=== PATIENT | female | born 1985 | race Caucasian/White ===

== ENCOUNTER 2016-10-26 05:04 | Inpatient (IN) | payer OTHER ==
[~2016-10-26] VITALS: Ht 165.1 cm; Wt 82.1 kg
[~2016-10-26 05:04] MED LIST: DOCU-41 PO; HYDR-4003 PO; IBUP800T28 PO
[2016-10-26] MEDS ORDERED: Lactated Ringer's 1,000 ML IV PRN (05:29)
[2016-10-26] MEDS ORDERED: Oxytocin 30 Units/500 mL LR 30 UNITS in IV Premix 1 EACH IV PRN ×3 (05:30→17:40)
[2016-10-26] MEDS ORDERED: Hemorrhage Kit, Post Partum XX ONE ×2 (05:30→17:40)
[2016-10-26] MEDS ORDERED: Methylergonovine 0.2 mg/mL Inj IM PRN ×2 (05:30→17:40)
[2016-10-26] MEDS ORDERED: Ondansetron 2 mg/mL 2 mL Inj IVPUSH PRN ×2 (05:30→07:10)
[2016-10-26] MEDS ORDERED: Carboprost 250 mCg/mL Inj IM PRN ×2 (05:30→17:40)
[2016-10-26] MEDS ORDERED: Oxytocin 10 Unit/mL Inj IM PRN ×2 (05:30→17:40)
[2016-10-26] MEDS ORDERED: fentaNYL-PF 50 mCg/mL 2 mL Inj IVPUSH PRN (05:30)
--- NOTE | 2016-10-26 06:21 | PCM.HPOB ---
Subjective Referring Provider: Admitting Physician: Kareen Bobo MD Primary Care Physician: Nopcp Attending Physician: Kareen Bobo MD Chief Complaint "water broke" History of Present History of Present Illness Ms. Smith is a 31 y/o woman at 36 weeks 5 days gestation who presented to the [facility] for PPROM at 04:30 this morning. JENNIFER is 11/18/16 based on first trimester ultrasound. She states that it was a large gush of clear fluid. She has been having contractions every 1-2 minutes. She has a headache, ringing in her ears, and is diaphoretic. She does not have fever, chills, chest pain, upper abdominal pain, or increased swelling in her legs. From her outpatient records, she has had sciatica during this and was taking [place]land. She has been taking Ambien and a short course of Ativan for insomnia and anxiety, respectively. GBS status currently unknown, it was collected on 10/22/16 and results are not back yet. Patient has a severe penicillin allergy, which she had anaphylaxis in the past after penicillin. labs: blood type B positive, Pap smear negative, varicella immune, rubella immune, RPR nonreactive, HBsAg negative, HIV negative, 1 hour GTT within normal limits, gonorrhea and chlamydia negative, hepatitis C negative, TSH 1.810, HgbA1c 4.8% OB History: (3), Para (1), Term (1), Pre-term (0), ( 1), Living (1) Past Medical History Obstetrical History: History of one spontaneous 1 prior without complications but had depression Current , she had sciatica Gynecologic History: No history of STIs No history of abnormal Pap smears Age of menarche 12 y/o and her periods were regular Medical History: Anxiety and depression Surgical History: Breast augmentation 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 Hx Tobacco Use: No Hx Alcohol Use: No Hx Substance Use: No Past Family History Family History breast cancer in mother Review of Systems Constitutional: Y: Dizziness, Sweats, Chills, Fever Eyes: Denies: Blurred Vision, Vision Changes ENT: Denies: Nasal Congestion, Throat Pain Cardiovascular: Denies: Chest Pain Respiratory: Reports: SOB with Exertion, Denies: Cough, Pleuritic Chest Pain Gastrointestinal: Denies: Abdominal Pain, Epigastric pain, Nausea, Vomiting Genitourinary: Denies: Dysuria Psychologic: Reports: Anxious Medications Home medications vitamin Ambien Allergy Coded Allergies: Penicillins (Verified Allergy, Severe, 09/15/15) Exam Vital Signs T: 36.3, BP 123/77, HR 83, RR 18 Exam FHR 130-140s with variability and accelerations. No decelerations Constitutional: Well-developed, Well-nourished, Normal habitus HEENT: Atraumatic, EOMI, Scleral Anicteric, Mucous Membr Moist/[place] Lungs: Clear to Auscultation, Normal Air Movement Heart: Exam Unremarkable, Regular Rate/Rhythm, Normal S1, Normal S2, No Murmurs /Rubs/Gallops Abdomen: Gravid, Normal bowel sounds, Soft Extremities: Pulses Palpable x4, No Edema Neurological/Psychiatric: Alert, Oriented X3, Cooperative, Mild Distress ( secondary to contractions) Neuro: Grossly Neurologically Intact Additional Information Cervical exam: 4, 80, -2 Labs/Diagnostics Maternal Blood Type: B (positive) Group B Strep Results: Sent, awaiting results Rubella: Immune OB Intrapartum Assessment/Plan Assessment 1. 31 y/o woman at 36 weeks 5 days gestation who presented to the [facility] for PPROM at 04:30 this morning. JENNIFER is 11/18/16 based on first trimester ultrasound. -Normal uterine activity -FHR category I tracing -GBS unknown and patient is allergic to penicillin, will try to obtain GBS results from the lab -Continue expectant management Attending Statement The patient was seen and examined together with Dr. Sarah Hackett DO on 2016 and I agree with the history, exam and plan as outlined in the note above. Sarah Hackett DO Oct 26, 2016 06:21 Kareen Bobo MD Nov 02, 2016 09:09
[2016-10-26 07:00] LABS: Mean Corpuscular Hemoglobin 31.3 pg (27.0-35.0); Mean Corpuscular Volume 93.1 fL (81-100)
[2016-10-26] MEDS ORDERED: Lactated Ringer's 500 ML IV ONE (07:08)
[2016-10-26] MEDS ORDERED: fentaNYL 2 mCg/mL-Bupiv 0.125% 100 ML EPIDURAL SCH ×3 (07:10→09:40)
[2016-10-26] MEDS ORDERED: Atropine 1 mg/10 mL (Code) Syringe IVPUSH PRN (07:10)
[2016-10-26] MEDS ORDERED: EPHEDrine Sulfate 50 mg/mL Inj IVPUSH PRN (07:10)
[2016-10-26] MEDS: Lactated Ringer's 1,000 ML IV SCH ×4 (07:11→16:03)
[2016-10-26] MEDS ORDERED: EPHEDrine/NS 5 mg/mL 5 mL Syringe ONE (08:06)
[2016-10-26] MEDS ORDERED: Vancomycin Inj 1,000 MG in IV Premix 1 EACH IV SCH (08:30)
[2016-10-26] MEDS ORDERED: Sodium Chloride LOK Flush 10 mL Syringe IVFLUSH SCH (08:30)
--- NOTE | 2016-10-26 08:41 | PCM.HPANE ---
Patient Data Surgeon Admitting Provider:Kareen Bobo MD Attending Provider:Kareen Bobo MD Primary Care Physician:Elpidio Other Provider:Howard Andrade Anesthesia Reason for Visit Term Labor TERM LABOR Ht/WT & BMI Body Mass Index Allergies Coded Allergies: Penicillins (Verified Allergy, Severe, 09/15/15) Past Anesthesia History Anesthesia History: Denies:: Abnormal Airway, Anesthesia Reactions, Difficult Intubation, Fam Anesthesia Reaction, Fam Malignant Hypertherm, Malignant Hyperthermia Diabetes History Hx Diabetes?: No Medications Hypertension Medication: No Home Meds Incl Beta Samuel: No Active Scripts Hydrocodone-Acetaminophen 5-325 mg 1 Each Tablet1-2 Tablet PO q6hrs PRN For Pain #20 TABLET Ref 0 Prov:Mike Moser COMPUTER SYSTEMS SOFTWARE ENGINEER 08/25/15 Hydrocodone-Acetaminophen 5-325 mg 1 Each Tablet1-2 Each PO Q4 PRN For Pain #30 TABLET Prov:Jeff Munson MD 06/04/14 Docusate Sodium (Colace)100 Mg [id number] Mg PO BID PRN For Constipation #60 CAPSULE Prov:Jeff Munson MD 06/04/14 Ibuprofen 800 Mg [id number] Mg PO QID PRN For Pain #60 TABLET Prov:Jeff Munson MD 06/04/14 Last Time Dose Received Pt. states she is on nothing but PNV's. History History of ENT Problems?: No HEENT History: Denies:: Abnormal Airway Cataracts Difficult Intubation Dysphagia Glaucoma Hearing Problem Sinus Problem TMJ Denture Type: None Teeth Condition: Within Normal Limits Hx of Heart Problems?: No Cardiovascular History: Denies:: Congestive Heart Failure Hypertension Hx of Respiratory Problem?: No Respiratory History: Denies:: Tuberculosis Hx Neurologic Problems?: Yes (See below) Other History/Comments Anxiety/depression Sciatica during Hx of GI Problems?: No Hx of Problems?: No HX of Peritoneal Dialysis: No Female Hx: Positive for:: Currently Hx Musculoskeletal Problems?: No Hx of Psycho/Social Problems?: Yes Psycho Social History: Positive for:: Anxiety Hx Depression Hx Surgeries?: No Hx Any Other Health Problems?: No Hx Diabetes: No Hx Alcohol Use: NoHx Substance Use: No Smoking Status: Never Smoker Have You Smoked inLast 12 mo: No Stop/Bang Risk Assessment Category Category 1A: Patient has history of documented sleep apnea, and HAS NOT received any narcotic, sedative or anesthesia administration during this stay. Category 1B: Patient has history of documented sleep apnea, and HAS received any narcotic , sedative or anesthesia administration during this stay Category 2: Patient has SUSPECTED Obstructive Sleep Apnea, and HAS received any narcotic , sedative or anesthesia administration during this stay. Category 3: Patient has SUSPECTED Obstructive Sleep Apnea and HAS NOT received narcotic, sedative or anesthesia administration during this stay. Category 4: Outpatient in Procedural Areas with known sleep apnea or who screen positive for High Risk via the STOP/BANG questionnaire. Exam Exam General Appearance: Alert, Oriented X3, Cooperative, Mild Distress (secondary to contractions) HEENT/AIRWAY: MP 2, Neck Movement (FROM) Lungs: Clear to Auscultation, Normal Air Movement Heart: Exam Unremarkable, Regular Rate/Rhythm, Normal S1, Normal S2, No Murmurs /Rubs/Gallops Meds/Labs/Diagnostics Labs Test 10/26/16 06:40 White Blood Count 8.4th/mm3 (3.8-10.1) Red Blood Count 3.93mil/mm3 (3.90-5.20) Hemoglobin 12.3g/dL (12.0-15.6) Hematocrit 36.6% (35.0-46.0) Mean Corpuscular Volume 93.1fL (81-100) Mean Corpuscular Hemoglobin 31.3pg (27.0-35.0) Mean Corpuscular Hemoglobin Concent 33.6% (32.0-37.0) Red Cell Distribution Width 13.7% (12.3-15.4) Platelet Count 195bil/L (150-400) Plan Impression Patient chart reviewed, patient interviewed and anesthestic plan with risks, benefits, and alternatives discussed, and informed consent obtained. ASA Physical Status: ASA2 Mod Systemic Disease Anesthetic Plan: Epidural Bene/Risks/Altern/Consents: Yes HP Complete Prior to Induction: Yes Krzysztof Schuster MD Oct 26, 2016 07:10
[2016-10-26] MEDS ORDERED: diphenhydrAMINE 50 mg Capsule PO PRN (11:55)
[2016-10-26] MEDS ORDERED: LANOlin HPA 7 Gm Ointment TOPICAL PRN (17:40)
[2016-10-26] MEDS ORDERED: Benzocaine (Dermoplast) 20% 60 Gm Spray TOPICAL PRN (17:40)
[2016-10-26] MEDS ORDERED: Witch Hazel-Glycerin Pads TOPICAL PRN (17:40)
[2016-10-26] MEDS: oxyCODONE-Acetamin 5-325 mg Tablet PO PRN ×2 (20:03→23:37)
--- NOTE | 2016-10-26 20:50 | OP ---
[address] [address] OPERATIVE REPORT PATIENT: LESLEY CALDERON : 1985 MR#: [id number] ADMIT: 10/26/2016 JOB ID: [id number] DATE OF SURGERY: 10/26/2016 SURGEON: Pat Meraz MD. PREOPERATIVE DIAGNOSIS(ES): 1. 36 plus five week intrauterine with premature rupture of membranes. 2. Severe anxiety. 3. Sciatica. POSTOPERATIVE DIAGNOSIS(ES): 1. 36 plus five week intrauterine with premature rupture of membranes. 2. Severe anxiety. 3. Sciatica. PROCEDURE PERFORMED: Spontaneous vaginal delivery of a liveborn male , born on October 26, 2016, at 1712 hours. Weight is currently pending with Apgars of 8 at one minute, 8 at five minutes. ANESTHESIA: Epidural. ESTIMATED BLOOD LOSS: 200 cc. FLUID REPLACEMENT: Crystalloid in labor. COMPLICATIONS: None apparent. INDICATIONS: This is a 31-year-old, G3, P 1-0-1-1 female, who is presenting at 36 plus five weeks gestational age complaining of premature rupture of membranes. She was noted to be ruptured at the time of admission and 2 cm dilated. EDC was November 18, 2016. Her was complicated by severe anxiety as well as insomnia and sciatica throughout the requiring use of both Vicodin as well as daily Ambien and later in Ativan due to panic attacks. She presented on the morning of the and was admitted after she was noted to be ruptured. laboratory data showed blood type of B positive, antibody screen negative, rubella immune, varicella immune, hep B surface antigen negative, RPR nonreactive, HIV negative, and GBS negative. The patient was admitted October 26 with rupture of membranes. An epidural was placed for her pain relief and when she was noted to have minimal cervical change four hours after admission Pitocin was then started per protocol. Pitocin was increased to six milliunits and she progressed to complete by the afternoon of October 26. It was at this point that she began pushing, bringing the vertex to the perineum. HOSPITAL COURSE: The patient was noted to be complete and pushing so she was placed in dorsal lithotomy position, prepped and draped in the usual sterile fashion for a vaginal delivery. She pushed and the head delivered spontaneously in the LLOYD position over an intact perineum. A nuchal cord was checked and none was noted. The anterior shoulder delivered easily, followed by the posterior shoulder and the remainder of the was then easily delivered. After a 60 second cord clamping delay the cord was then clamped and cut and the infant was placed on the mother's abdomen. Cord blood was then obtained. The placenta delivered intact spontaneously after Pitocin was started per protocol and a bimanual examination revealed that there were no remaining placental fragments within the uterine cavity. Examination of the vaginal vault and perineum showed a periclitoral abrasion that was hemostatic and not repaired. She otherwise had no other lacerations. She tolerated this procedure well. Recovered in labor and delivery with her infant. All sponge, needle, and instrument counts were correct.
[2016-10-27] MEDS: Lactated Ringer's 1,000 ML IV SCH ×3 (01:37→02:04)
[2016-10-27] MEDS: oxyCODONE-Acetamin 5-325 mg Tablet PO PRN ×3 (03:32→11:11)
[2016-10-27 07:54] LABS: Mean Corpuscular Hemoglobin 31.3 pg (27.0-35.0); Mean Corpuscular Volume 94.8 fL (81-100)
[2016-10-27] MEDS ORDERED: Ascorbic Acid 500 mg Tablet PO SCH (08:00)
--- NOTE | 2016-10-27 12:02 | PCM.DIMED ---
Discharge Instructions Date of Service Oct 27, 2016 Dates of Hospitalization Oct 26, 2016 at 05:10 Diet No restrictions Activity No restrictions Call your provider Fever or Chills, Shortness of breath, Bleeding, Chest pain, Vomitting Patient Instructions Follow-up with PCP in: 6 weeks Xavi Bone MD Oct 27, 2016 12:02
[2016-10-27] MEDS ORDERED: FERR-74 PO (12:05)
[2016-10-27] MEDS ORDERED: IBUP800T28 PO (12:05)
[2016-10-27] MEDS ORDERED: OXYC5TAB72 PO (12:05)
[2016-10-27] MEDS ORDERED: DOCU-41 PO (12:06)
[2016-10-27 12:19] VITALS: BP 114/61; PULSE 87; RESP 18
--- NOTE | 2016-10-27 14:31 | DIS ---
[address] [address] DISCHARGE SUMMARY PATIENT: LESLEY CALEDRON : 1985 MR#: [id number] ADMIT: 10/26/2016 JOB ID: [id number] DIS: 10/27/2016 ADMITTING DIAGNOSES: 1. A 31-year-old 3, para 1 at 36 weeks and five days in active labor with premature rupture of membranes. 2. Anxiety disorder. 3. Sciatica. DISCHARGE DIAGNOSES: 1. Spontaneous vaginal delivery at 36 weeks and five days. 2. Anxiety disorder. 3. Sciatica. HOSPITAL COURSE: The patient is a 31-year-old 3, para 2 now, who presented to Labor and Delivery at 36 weeks and five days with premature rupture of membranes on October 26, 2016 at 4:30 a.m. The cervix was 2 cm dilated at the time of admission. She received Vicodin for anxiety. She was GBS negative. She received an epidural. Pitocin was started for induction of labor as per protocol. The patient progressed to complete dilation in the afternoon of October 26, 2016 and began pushing. She underwent spontaneous vaginal delivery on October 26, 2016 at 5:12 p.m., delivered male with Apgars 8 at one minute and eight at 5 minutes. The delivery was uncomplicated. The patient had minimal periurethral abrasions. No perineal lacerations. No repair was needed. One day one, October 27, 2016, the patient was complaining of abdominal cramps. She has not had any bleeding or abnormal vaginal discharge. She was breast-feeding well, ambulating, tolerating regular food. Vitals were stable. She was afebrile. On examination, the fundus was firm. The abdomen mildly to moderately tender. She was discharged home on day one, October 27, 2016, with all discharge criteria met. Her blood work showed mild anemia with hemoglobin 11.4. The patient received discharge medications includin. Ferrous sulfate 325 mg p.o. daily. 2. Colace 100 mg p.o. b.i.d. 3. Oxycodone 5 mg tablets p.o. t.i.d. for pain. 4. Ibuprofen 800 mg p.o. t.i.d. p.r.n. for pain. The follow up visit in the clinic is scheduled in six weeks.
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
[2016-10-27] MEDS ORDERED: LORA-303 PO (15:56)
[2016-10-27] MEDS ORDERED: SERT50TA9 PO (16:00)
== END 2016-10-27 12:36 | disposition home or self-care (01) | DRG 775 ==
LOC: FBCO 05:04 → FBC 05:10
PROVIDERS: ADMIT Obstetrics & Gynecology; ATTEND Obstetrics & Gynecology
PROC: 10E0XZZ Delivery of Products of Conception, External Approach (ICD-10-PCS; principal; 2016-10-26)
DX: O42.013 Preterm premature rupture of membranes, onset of labor within 24 hours of rupture, third trimester (principal); Z3A.36 36 weeks gestation of pregnancy; Z37.0 Single live birth; O90.81 Anemia of the puerperium

== ENCOUNTER 2016-12-02 07:27 | Emergency (ER) | payer OTHER ==
[~2016-12-02] VITALS: Ht 162.6 cm; Wt 72.7 kg
[~2016-12-02 07:27] MED LIST changes: +FERR-74 PO; -HYDR-4003 PO; +LORA-303 PO; +OXYC5TAB72 PO; +SERT50TA9 PO
--- NOTE | 2016-12-02 07:31 | ED.REPORT ---
HPI-Psychiatric Illness Date of Service December 02, 2016 ED Provider: Jori Ng MD Pt is a 31 y.o. female who is 7 weeks who presents to the ED via EMS with suicidal ideation. Pt called EMS prior to arrival saying that she was going to harm herself. Upon their arrival pt told them that she had guns in the house and if she knew how to load them she would have shot herself in the head. She however kept declining transfer to the hospital as she couldn't leave her two children. The pt's was able to come home to watch the kids and she agreed to transport. Upon arrival pt states that she has "struggled" with depression with her whole life but after the of her second son she states it has gotten worse. She denies prior attempts but claims that she has grabbed the gun in her house before. She endorses ETOH use last night, 4 beers, and she states that she normally does not drink, During the examination she keeps stating that she is "embarrassed". Pt reports taking Xanax, Ambien, and Fluoxetine as needed for her anxiety. Throughout my time in the examination room she repeatedly requests benzodiazepines at times stating that she would not be suicidal if she just had some Xanax to calm herself down. She later states that he does not want to commit suicide but frequently thinks about it though denies that she could have ever follow through with it. Nursing Notes Stated Complaint: SUICIDAL Nursing Notes Reviewed: Yes Allergies: Coded Allergies: Penicillins (Verified Allergy, Severe, 09/15/15) Scheduled Docusate Sodium (Colace) 100 Mg Capsule 100 MG PO BID Ferrous Sulfate (Feosol) 325 Mg Tablet 325 MG PO DAILY Sertraline HCl (Sertraline) 50 Mg Tablet 50 MG PO DAILY Scheduled PRN Hydroxyzine Pamoate (Vistaril) 25 Mg Capsule 25 MG PO TID PRN PRN For Anxiety Ibuprofen (Ibuprofen) 800 Mg Tablet 800 MG PO TID PRN PRN For Pain Lorazepam (Ativan) 1 Mg Tablet 1 MG PO HS PRN PRN For Insomnia oxyCODONE (oxyCODONE) 5 Mg Tablet 5-10 MG PO QID PRN PRN For Pain General Time Seen by MD: 07:29 Chief Complaint Suicidal ideation Hx Obtained From: Patient, EMS Arrived By: Ambulance Onset Occurred: Just prior to arrival Risk-Psychiatric Illness Suicide Risk Stratification Suicide Risk Factors - Adult: : Access to firearms RF Statements: Risk factors reviewed Past Medical History Past Medical History Notes: review of [facility] indicates multiple providers with ongoing benzo's [place] in a 1 [place] period. Past Medical History Denies Past Surgical History Denies Smoking History Never Smoker Social History Alcohol Use: Denies alcohol use Drug Use: Denies drug use Other Social History: Occupation lives with family Ambulatory Status Independent Review of Systems Psychiatric: Reports: Anxiety, Depression, Suicidal ideation, Denies: Homicidal ideation Complete sys rev & neg: except as marked. Physical Exam Initial Vital Signs Vital Signs (First) Date Time Temp Pulse Resp B/P Pulse Ox O2 Delivery O2 Flow Rate FiO2 12/02/16 07:33 36.6 92 18 121/77 100 Room Air Initial VS: Reviewed Abdomen / GI: No distention Extremities: Vascular intact, Neuro intact, No swelling, No tenderness Skin: Warm, Dry, No cyanosis General/Constitutional: Awake, Alert, Well appearing, Well developed, Well hydrated, Well nourished, Not toxic appearing Behavior: Positive: Tearful Neurologic: Oriented X3, Speech NL Abnormal Mood/Affect: Positive: Anxious Abnormal Thinking / Perception: Positive: Suicidal, with plan Head / Eyes: Atraumatic, Normocephalic, PERRL, EOMI Respiratory / Chest: Atraumatic, Breath sounds NL, Breath sounds = bilat, No respiratory distress Cardiovascular: Heart rate NL, Regular rhythm, Heart sounds NL, Cap refill not delayed, Peripheral circulation NL Interpretation & Diagnostics Lab Results Interpretation Result Diagram: 12/02/16 0740 12/02/16 0740 Test 12/02/16 07:40 12/02/16 08:24 White Blood Count 5.6th/mm3 (3.8-10.1) Red Blood Count 4.28mil/mm3 (3.90-5.20) Hemoglobin 13.3g/dL (12.0-15.6) Hematocrit 39.0% (35.0-46.0) Mean Corpuscular Volume 91.1fL (81-100) Mean Corpuscular Hemoglobin 31.1pg (27.0-35.0) Mean Corpuscular Hemoglobin Concent 34.1% (32.0-37.0) Red Cell Distribution Width 11.9% (12.3-15.4) Platelet Count 190bil/L (150-400) Neutrophils (%) (Auto) 58.9% (40-74) Lymphocytes (%) (Auto) 28.2% (14-46) Monocytes (%) (Auto) 4.9% (4-12) Eosinophils (%) (Auto) 7.6% (0-5) Basophils (%) (Auto) 0.4% (0-3) Sodium Level 138mEq/L (134-144) Potassium Level 3.6mEq/L (3.5-5.2) Chloride Level 101mEq/L (97-108) Carbon Dioxide Level 24mmol/L (18-29) Blood Urea Nitrogen 8mg/dL (6-20) Creatinine 0.64mg/dL (0.57-1.00) Estimat Glomerular Filtration Rate 155mL/min (>59) Glucose Level 91mg/dL (60-99) Calcium Level 9.5mg/dL (8.5-10.1) Total Bilirubin 0.2mg/dL (0.0-1.2) Aspartate Amino Transf (AST/SGOT) 21U/L (0-50) Alanine Aminotransferase (ALT/SGPT) 28U/L (0-32) Alkaline Phosphatase 101U/L (25-150) Total Protein 6.9g/dL (6.4-8.4) Albumin 4.0g/dL (3.4-5.0) Thyroid Stimulating Hormone (TSH) 2.420uIU/mL (0.450-4.500) Hold Corea Top Tube Received (Received) Hold Urine Received (Received) Re-Eval/Medical Decision Med Decision/Clinical Course Pt is a 31 y.o. female who is 7 weeks who presents to the ED via EMS with suicidal ideation. Pt called EMS prior to arrival saying that she was going to harm herself. Upon their arrival pt told them that she had guns in the house and if she knew how to load them she would have shot herself in the head. She however kept declining transfer to the hospital as she couldn't leave her two children. The pt's was able to come home to watch the kids and she agreed to transport. Upon arrival pt states that she has "struggled" with depression with her whole life but after the of her second son she states it has gotten worse. She denies prior attempts but claims that she has grabbed the gun in her house before. She endorses ETOH use last night, 4 beers, and she states that she normally does not drink, During the examination she keeps stating that she is "embarrassed". Pt reports taking Xanax, Ambien, and Fluoxetine as needed for her anxiety. Throughout my time in the examination room she repeatedly requests benzodiazepines at times stating that she would not be suicidal if she just had some Xanax to calm herself down. She later states that he does not want to commit suicide but frequently thinks about it though denies that she could have ever follow through with it. The patient is extremely anxious and she was treated with 1 mg of Ativan and stated she felt much better. Laboratory studies were notable as below: CBC unremarkable CMP unremarkable UA drug positive for benzodiazepines and TCA's. Preg negative. The initial presentation was extremely concerning with statement from the patient that she had access to firearms and that if she knew how to use them that she would commit suicide. That being said, she additionally never wanted to come to the emergency room and throughout her visit seems to be much more concerned about obtaining benzodiazepines that she was about getting psychiatric treatment. Later in her course she continually denied any suicidal intent and recurrently stated that if she had more Xanax that she would not be suicidal. The patient's came to bedside and stated that he removed all ammunition for firearms in the household and that she would no longer have access to firearms. The patient repeatedly refused admission and continued to state that she was not suicidal. The patient's reported long history of similar behavior to what we witnessed today and stated that he was able to safely take care of her at home. Patient was seen and evaluated by emergency department social worker school and while we do think that she may benefit from psychiatric treatment she is not felt to be holdable and continually refuses admission. She has good outpatient follow-up plan and is advised to return immediately should she develop any recurrent suicidal thoughts, plans or actions. She will be watched closely with her and will follow up next week with outpatient psychiatrist/therapist. Prior to discharge follow-up and return precautions were reviewed in detail with the patient as well as her who verbalized understanding and agreement with the plan. The patient was discharged in stable condition. Older, the patient's states that he is very involved in caring for the children and that he does not feel that there is any risk to children and current household situation. Re-Evaluation/Progress #1: Time of Eval: 11:11 Re-Evaluation/Progress Note: Consulted with [employer]. Will contact pt's to discuss removing the firearms from the household. Pt's SI also seems to occur in association with panic attacks and extreme anxiety. Re-Evaluation/Progress #2: Time of Eval: 12:25 Re-Evaluation/Progress Note: Pt rechecked. Pt states that she is "scared" and wants Ativan to go home with. She is told that she cannot be prescribed Ativan upon discharge. She states she will feel unsafe going home without Ativan, when offered admission she refuses to be admitted. Counseled Regarding: Diagnosis, Lab results, Need for follow-up, When/why to return to ED Discharge & Departure Impression: Primary Impression: Acute situational disturbance Additional Impressions: Anxiety Suicidal ideation depression Benzodiazepine dependence )( Condition at Discharge: No danger to self, No danger to others, No suicidal ideation, No homicidal ideation (\\) Disposition: Home Discharge Condition All VS Reviewed: Yes Condition: Improved Additional Instructions: Thank you for seeking care at the emergency room. You were seen today for anxiety, depression and suicidal thoughts. Your will remove all firearms from the household. If you ever feel that you are at risk of harming yourself or anyone else or if you are having a psychiatric emergency please call 911 or come back to the emergency room. You have been prescribed Vistaril, please take as directed for anxiety until you are able to follow up with your psychiatrist. We cannot refill benzodiazepine-type medications in the emergency room and in my belief these are not good medications for managing her anxiety in the long- term. Please follow up with the additional resources were provided by our social worker school. You should return to the ED immediately if you develop any suicidal ideas, increased depression/anxiety, thoughts of harming anyone else, if you feel that your unable to care for yourself or your children, if you develop fevers, vomiting, cough, shortness of breath, chest pain, lightheadedness, weakness or any other concerning signs or symptoms. Thank you for letting us partake in your care today. Referrals: [facility] (PCP) Tameka Diaz Attestation Portions of this note were transcribed by Jose Nieto. I, Dr. Ng personally performed the history, physical exam and medical decision-making; I reviewed and confirmed the accuracy of the information in the transcribed note. Signed by: Amanda Iyer, 12/02/16 and 1230 copies to: Tameka Diaz Beck O MD December 02, 2016 07:31 JOSE NIETO December 02, 2016 07:54
[2016-12-02 07:33] VITALS: BP 121/77; PULSE 92; RESP 18; O2SAT 100
[2016-12-02 07:52] LABS: BASOPHILS % (AUTO) 0.4 % (0-3); EOSINOPHILS % (AUTO) 7.6 % (0-5); MONOCYTES % (AUTO) 4.9 % (4-12); Mean Corpuscular Hemoglobin 31.1 pg (27.0-35.0); Mean Corpuscular Volume 91.1 fL (81-100); NEUTROPHILS % (AUTO) 58.9 % (40-74); Platelet Count 190 bil/L (150-400)
[2016-12-02] MEDS ORDERED: LORazepam 1 mg Tablet PO ONE (07:55)
[2016-12-02] MEDS ORDERED: HYDR25CA PO (11:18)
[2016-12-02 12:04] VITALS: BP 106/74; PULSE 85; RESP 24; O2SAT 100
[2016-12-02] MEDS ORDERED: hydrOXYzine Pamoate 25 mg Capsule PO ONE (12:15)
[2016-12-02] MEDS ORDERED: LORazepam 0.5 mg Tablet PO ONE (12:35)
[2016-12-02 12:45] VITALS: BP 106/74; PULSE 85; RESP 24; O2SAT 100
== END 2016-12-02 13:08 | disposition home or self-care (01) ==
LOC: SED 07:27
DX: F43.0 Acute stress reaction (principal); F41.9 Anxiety disorder, unspecified; R45.851 Suicidal ideations; F53 Mental and behavioral disorders associated with the puerperium, not elsewhere classified; F13.20 Sedative, hypnotic or anxiolytic dependence, uncomplicated; Z88.0 Allergy status to penicillin
CPT/HCPCS: 36415; 80053; 81002; 81025; 82075; 84443; 85025; 99284; Q0177